=== PATIENT | female | born 1965 | race Caucasian/White ===

== ENCOUNTER 2020-06-26 17:48 | Inpatient (IN) ==
[2020-06-26 18:24] LABS: Basophils # 0.1 K/mcL (0.0-0.2); Basophils % 0.8 %; Eosinophils # 0.3 K/mcL (0.0-0.6); Eosinophils % 3.1 %; Hematocrit 40.4 % (35.3-44.9); Hemoglobin 13.2 g/dL (11.5-15.4); Immature Granulocytes % 0.5 % (0-4); Lymphocytes # 3.4 K/mcL (0.6-4.6); Lymphocytes % 33.1 %; Mean Corpuscular HGB Conc 32.7 g/dL (31.6-35.5); Mean Corpuscular Hemoglobin 28.9 pg (28.0-33.3); Mean Corpuscular Volume 88.6 fL (83.0-100.0); Mean Platelet Volume 9.9 fL (9.4-12.4); Monocytes # 0.5 K/mcL (0.0-1.3); Monocytes % 5.3 %; Neutrophils # 5.8 K/mcL (1.6-8.9); Platelet Count 355 K/mcL (140-400); Red Blood Count 4.56 M/mcL (3.82-4.97); Red Cell Distribution Width 13.2 % (11.5-14.5); Segmented Neutrophils % 57.2 %; White Blood Count 10.2 K/mcL (4.3-11.1)
[2020-06-26 18:51] LABS: Alanine Aminotransferase 22 Units/L (7-52); Albumin 3.6 g/dL (3.5-5.7); Albumin/Globulin Ratio 1.3 (1.1-2.2); Alkaline Phosphatase 58 Units/L (34-104); Aspartate Amino Transferase 25 Units/L (13-39); BUN/Creatinine Ratio 9 (6-26); Bilirubin,Indirect 0.3 mg/dL (0.0-1.0); Bilirubin,Total 0.3 mg/dL (0.3-1.0); Blood Urea Nitrogen 5 mg/dL (6-20); Calcium 9.4 mg/dL (8.6-10.3); Carbon Dioxide 26 mEq/L (23-29); Chloride 105 mEq/L (98-107); Globulin 2.8 g/dL (2.4-3.5); Glucose 103 mg/dL (70-105); Magnesium 0.9 mg/dL (1.6-2.6); Osmolality,Calculated 284 (280-300); Phosphorous 3.6 mg/dL (2.7-4.5); Potassium 3.7 mEq/L (3.5-5.1); Sodium 138 mEq/L (136-145); Total Protein 6.4 g/dL (6.4-8.9); Troponin I 0.29 ng/mL (< 0.04); eGFR For African Americans > 60 (> 60); eGFR For Non-African Americans > 60 (> 60)
[2020-06-26] MEDS ORDERED: Aspirin 325 MG TABLET PO ONE (18:52)
[2020-06-26] MEDS ORDERED: *HR* Heparin 5,000 UNIT/ML VIAL IVP ONE (19:00)
[2020-06-26] MEDS ORDERED: *HR* Heparin 5,000 UNIT/ML VIAL IVP PRN (19:00)
[2020-06-26 19:54] LABS: Hematocrit 39.2 % (35.3-44.9); Hemoglobin 12.9 g/dL (11.5-15.4); Heparin anti-factor XA UFH 0.96 IU/mL (0.30-0.70); INR 1.3; Mean Corpuscular HGB Conc 32.9 g/dL (31.6-35.5); Mean Corpuscular Hemoglobin 29.1 pg (28.0-33.3); Mean Corpuscular Volume 88.5 fL (83.0-100.0); Platelet Count 345 K/mcL (140-400); Prothrombin Time 14.3 Seconds (9.4-12.1); Red Blood Count 4.43 M/mcL (3.82-4.97); Red Cell Distribution Width 13.2 % (11.5-14.5); White Blood Count 10.7 K/mcL (4.3-11.1)
[2020-06-26] MEDS: Heparin 25,000UNIT/250ML 1/2NS 25,000 UNIT/250 ML IV.SOLN IVC SCH (20:01)
[2020-06-26 21:50] LABS: Adenovirus Not Detected (Not Detect); Bordetella Pertussis Not Detected (Not Detect); Chlamydophila pneumoniae Not Detected (Not Detect); Coronavirus 229E Not Detected (Not Detect); Coronavirus HKU1 Not Detected (Not Detect); Coronavirus NL63 Not Detected (Not Detect); Coronavirus OC43 Not Detected (Not Detect); Human Metapneumovirus Not Detected (Not Detect); Human Rhinovirus/Enterovirus Not Detected (Not Detect); Influenza A Subtype 2009 H1 Not Detected (Not Detect); Influenza B Not Detected (Not Detect); Mycoplasma pneumoniae Not Detected (Not Detect); Parainfluenza Virus 1 Not Detected (Not Detect); Parainfluenza Virus 2 Not Detected (Not Detect); Parainfluenza Virus 3 Not Detected (Not Detect); Parainfluenza Virus 4 Not Detected (Not Detect); Respiratory Syncytial Virus Not Detected (Not Detect); SARS-CoV-2 Not Detected (Not Detect)
[2020-06-26] MEDS ORDERED: Naloxone 0.4 MG/ML INJ IVP PRN (21:56)
[2020-06-27] MEDS ORDERED: Acetaminophen 325 MG TABLET PO PRN (00:08)
[2020-06-27] MEDS ORDERED: D5% in Water 1,000 ML IVC PRN (01:53)
[2020-06-27] MEDS ORDERED: Dextrose Gel 15 GM/37.5 ML TUBE PO PRN ×2 (01:53)
[2020-06-27] MEDS ORDERED: *HR* Dextrose 50 % in Water (Vial) 50 ML VIAL IVP PRN (01:53)
[2020-06-27] MEDS ORDERED: Perflutren Lipid Microsphere 1.3 ML in 0.9 % Sodium Chloride 8.7 ML IVP PRN ×2 (02:36→11:24)
[2020-06-27] MEDS: *HR* Promethazine 25 MG/ML VIAL IVP PRN (05:53)
[2020-06-27 05:59] LABS: Basophils # 0.1 K/mcL (0.0-0.2); Basophils % 0.7 %; Eosinophils # 0.4 K/mcL (0.0-0.6); Eosinophils % 3.6 %; Hematocrit 40.6 % (35.3-44.9); Hemoglobin 13.3 g/dL (11.5-15.4); Immature Granulocytes % 0.6 % (0-4); Lymphocytes # 3.7 K/mcL (0.6-4.6); Lymphocytes % 36.5 %; Mean Corpuscular HGB Conc 32.8 g/dL (31.6-35.5); Mean Corpuscular Hemoglobin 28.9 pg (28.0-33.3); Mean Corpuscular Volume 88.1 fL (83.0-100.0); Mean Platelet Volume 9.9 fL (9.4-12.4); Monocytes # 0.6 K/mcL (0.0-1.3); Monocytes % 5.9 %; Neutrophils # 5.4 K/mcL (1.6-8.9); Platelet Count 356 K/mcL (140-400); Red Blood Count 4.61 M/mcL (3.82-4.97); Red Cell Distribution Width 13.2 % (11.5-14.5); Segmented Neutrophils % 52.7 %; White Blood Count 10.3 K/mcL (4.3-11.1)
[2020-06-27 06:09] LABS: Heparin anti-factor XA UFH 0.14 IU/mL (0.30-0.70)
[2020-06-27 06:10] LABS: INR 1.1
[2020-06-27 06:11] LABS: Activated Partial Thrombo Time 40.3 Seconds (26.0-36.0)
[2020-06-27 06:17] LABS: BUN/Creatinine Ratio 11 (6-26); Blood Urea Nitrogen 6 mg/dL (6-20); Calcium 9.1 mg/dL (8.6-10.3); Carbon Dioxide 24 mEq/L (23-29); Chloride 108 mEq/L (98-107); Glucose 92 mg/dL (70-105); Magnesium 1.4 mg/dL (1.6-2.6); Osmolality,Calculated 291 (280-300); Phosphorous 4.3 mg/dL (2.7-4.5); Potassium 3.3 mEq/L (3.5-5.1); Sodium 142 mEq/L (136-145); eGFR For African Americans > 60 (> 60); eGFR For Non-African Americans > 60 (> 60)
[2020-06-27] MEDS ORDERED: Magnesium Sulfate 1 GM/102 ML PIGGYBACK IVPB ONE (06:53)
[2020-06-27] MEDS: *HR* Heparin 5,000 UNIT/ML VIAL IVP PRN (07:01)
[2020-06-27] MEDS: Insulin LISPRO 300 UNITS/3 ML VIAL SQ SCH ×4 (07:11→20:36)
[2020-06-27] MEDS: Insulin DETEMIR 100 UNIT/ML X5UNITS SQ SCH (08:30)
[2020-06-27 08:32] LABS: Estimated Average Glucose 214 mg/dl
[2020-06-27] MEDS ORDERED: NON-FORMULARY MEDICATION 1 EACH EACH (Insulin Aspart [Novolog Flexpen] 100 UNIT) SQ SCH (09:00)
[2020-06-27] MEDS ORDERED: 0.9 % Sodium Chloride 2,000 ML ONE (10:19)
[2020-06-27] MEDS ORDERED: Nitroglycerin 1,000 MCG/10 ML VIAL IV ONE (10:19)
[2020-06-27] MEDS ORDERED: ISOVUE-370 200 ML INFUS..BTL ONE (10:19)
[2020-06-27] MEDS ORDERED: Heparin 1,000 UNITS/500 mL 500 ML ONE (10:19)
[2020-06-27] MEDS ORDERED: *HR* Heparin 10,000 UNIT/10 ML VIAL ONE (10:19)
[2020-06-27] MEDS: Metoprolol XL (24 HR) Succ 25 MG TAB.ER.24H PO SCH (10:21)
[2020-06-27] MEDS: Aspirin Enteric Coated 81 MG Tablet PO SCH (10:21)
[2020-06-27] MEDS: hydrOXYzine pamoate 25 MG CAPSULE PO SCH ×3 (10:31→20:24)
[2020-06-27] MEDS: PARoxetine 20 MG TABLET PO SCH (10:31)
[2020-06-27] MEDS ORDERED: *HR* Midazolam HCl 2 MG/2 ML VIAL ONE (10:32)
[2020-06-27] MEDS ORDERED: *HR* FentaNYL (PF) 100 MCG/2 ML VIAL ONE (10:32)
[2020-06-27] MEDS: lisinopriL 5 MG TABLET PO SCH (12:58)
[2020-06-27] MEDS ORDERED: *HR* Warfarin 5 MG TABLET PO ONE (18:00)
[2020-06-27] MEDS ORDERED: Warfarin perPT PO PRN (18:00)
[2020-06-28] MEDS: Heparin 25,000UNIT/250ML 1/2NS 25,000 UNIT/250 ML IV.SOLN IVC SCH ×2 (00:43→16:00)
[2020-06-28 01:32] LABS: Basophils # 0.1 K/mcL (0.0-0.2); Basophils % 0.5 %; Eosinophils # 0.3 K/mcL (0.0-0.6); Eosinophils % 2.7 %; Hemoglobin 12.6 g/dL (11.5-15.4); Immature Granulocytes % 0.5 % (0-4); Lymphocytes # 3.4 K/mcL (0.6-4.6); Lymphocytes % 36.6 %; Mean Corpuscular HGB Conc 33.2 g/dL (31.6-35.5); Mean Corpuscular Volume 87.4 fL (83.0-100.0); Mean Platelet Volume 10.6 fL (9.4-12.4); Monocytes # 0.5 K/mcL (0.0-1.3); Monocytes % 5.5 %; Platelet Count 324 K/mcL (140-400); Red Blood Count 4.35 M/mcL (3.82-4.97); Red Cell Distribution Width 13.2 % (11.5-14.5); Segmented Neutrophils % 54.2 %; White Blood Count 9.2 K/mcL (4.3-11.1)
[2020-06-28 01:36] LABS: INR 1.2; Prothrombin Time 13.5 Seconds (9.4-12.1)
[2020-06-28 01:52] LABS: BUN/Creatinine Ratio 13 (6-26); Blood Urea Nitrogen 7 mg/dL (6-20); Calcium 8.5 mg/dL (8.6-10.3); Carbon Dioxide 21 mEq/L (23-29); Chloride 108 mEq/L (98-107); Glucose 191 mg/dL (70-105); Magnesium 1.4 mg/dL (1.6-2.6); Osmolality,Calculated 289 (280-300); Potassium 3.7 mEq/L (3.5-5.1); Sodium 138 mEq/L (136-145); eGFR For African Americans > 60 (> 60); eGFR For Non-African Americans > 60 (> 60)
[2020-06-28] MEDS: hydrOXYzine pamoate 25 MG CAPSULE PO SCH ×3 (07:14→20:00)
[2020-06-28] MEDS: PARoxetine 20 MG TABLET PO SCH (07:14)
[2020-06-28] MEDS: Aspirin Enteric Coated 81 MG Tablet PO SCH (07:14)
[2020-06-28] MEDS: Metoprolol XL (24 HR) Succ 25 MG TAB.ER.24H PO SCH (07:15)
[2020-06-28] MEDS: lisinopriL 5 MG TABLET PO SCH (07:16)
[2020-06-28] MEDS: Insulin LISPRO 300 UNITS/3 ML VIAL SQ SCH ×4 (07:22→19:52)
[2020-06-28] MEDS ORDERED: Magnesium Oxide 400 MG TABLET PO ONE (08:20)
[2020-06-28] MEDS: Insulin DETEMIR 100 UNIT/ML X5UNITS SQ SCH ×2 (09:32→09:43)
[2020-06-28 09:47] LABS: Chol/HDL Ratio 3.2 (0-4.9)
[2020-06-28] MEDS ORDERED: *HR* Warfarin 5 MG TABLET PO ONE (18:00)
[2020-06-29] MEDS: *HR* Promethazine 25 MG/ML VIAL IVP PRN (03:10)
[2020-06-29] MEDS: Metoprolol XL (24 HR) Succ 25 MG TAB.ER.24H PO SCH (09:25)
[2020-06-29] MEDS: lisinopriL 5 MG TABLET PO SCH (09:26)
[2020-06-29] MEDS: Insulin LISPRO 300 UNITS/3 ML VIAL SQ SCH ×4 (09:34→20:42)
[2020-06-29] MEDS: hydrOXYzine pamoate 25 MG CAPSULE PO SCH ×3 (09:34→20:41)
[2020-06-29] MEDS: Insulin DETEMIR 100 UNIT/ML X5UNITS SQ SCH (09:34)
[2020-06-29] MEDS: PARoxetine 20 MG TABLET PO SCH (09:34)
[2020-06-29] MEDS: Aspirin Enteric Coated 81 MG Tablet PO SCH (09:34)
[2020-06-29] MEDS: Heparin 25,000UNIT/250ML 1/2NS 25,000 UNIT/250 ML IV.SOLN IVC SCH (09:35)
[2020-06-29 10:32] LABS: Hemoglobin 12.3 g/dL (11.5-15.4); Mean Corpuscular HGB Conc 31.5 g/dL (31.6-35.5); Mean Corpuscular Hemoglobin 27.6 pg (28.0-33.3); Mean Corpuscular Volume 87.6 fL (83.0-100.0); Mean Platelet Volume 10.2 fL (9.4-12.4); Platelet Count 321 K/mcL (140-400); Red Blood Count 4.45 M/mcL (3.82-4.97); Red Cell Distribution Width 13.5 % (11.5-14.5); White Blood Count 7.3 K/mcL (4.3-11.1)
[2020-06-29 10:35] LABS: INR 1.5; Prothrombin Time 17.4 Seconds (9.4-12.1)
[2020-06-29 10:52] LABS: BUN/Creatinine Ratio 18 (6-26); Blood Urea Nitrogen 10 mg/dL (6-20); Calcium 8.9 mg/dL (8.6-10.3); Carbon Dioxide 24 mEq/L (23-29); Chloride 107 mEq/L (98-107); Glucose 271 mg/dL (70-105); Osmolality,Calculated 297 (280-300); Potassium 3.6 mEq/L (3.5-5.1); Sodium 139 mEq/L (136-145); eGFR For African Americans > 60 (> 60); eGFR For Non-African Americans > 60 (> 60)
[2020-06-29] MEDS ORDERED: *HR* Warfarin 5 MG TABLET PO ONE (18:00)
[2020-06-30] MEDS: Heparin 25,000UNIT/250ML 1/2NS 25,000 UNIT/250 ML IV.SOLN IVC SCH ×2 (01:15→21:22)
[2020-06-30 03:08] LABS: Hematocrit 36.7 % (35.3-44.9); Hemoglobin 11.6 g/dL (11.5-15.4); Mean Corpuscular HGB Conc 31.6 g/dL (31.6-35.5); Mean Corpuscular Hemoglobin 27.9 pg (28.0-33.3); Mean Corpuscular Volume 88.2 fL (83.0-100.0); Mean Platelet Volume 10.2 fL (9.4-12.4); Platelet Count 299 K/mcL (140-400); Red Blood Count 4.16 M/mcL (3.82-4.97); Red Cell Distribution Width 13.4 % (11.5-14.5); White Blood Count 7.5 K/mcL (4.3-11.1)
[2020-06-30 03:10] LABS: INR 1.7; Prothrombin Time 19.6 Seconds (9.4-12.1)
[2020-06-30 03:20] LABS: BUN/Creatinine Ratio 19 (6-26); Blood Urea Nitrogen 11 mg/dL (6-20); Calcium 8.5 mg/dL (8.6-10.3); Carbon Dioxide 26 mEq/L (23-29); Chloride 107 mEq/L (98-107); Glucose 282 mg/dL (70-105); Osmolality,Calculated 298 (280-300); Potassium 4.2 mEq/L (3.5-5.1); Sodium 139 mEq/L (136-145); eGFR For African Americans > 60 (> 60); eGFR For Non-African Americans > 60 (> 60)
[2020-06-30] MEDS: hydrOXYzine pamoate 25 MG CAPSULE PO SCH ×3 (09:44→20:33)
[2020-06-30] MEDS: lisinopriL 5 MG TABLET PO SCH (09:45)
[2020-06-30] MEDS: PARoxetine 20 MG TABLET PO SCH (09:45)
[2020-06-30] MEDS: Insulin DETEMIR 100 UNIT/ML X5UNITS SQ SCH (09:45)
[2020-06-30] MEDS: Insulin LISPRO 300 UNITS/3 ML VIAL SQ SCH ×4 (09:45→20:33)
[2020-06-30] MEDS: Metoprolol XL (24 HR) Succ 25 MG TAB.ER.24H PO SCH (09:45)
[2020-06-30] MEDS: Aspirin Enteric Coated 81 MG Tablet PO SCH (09:45)
[2020-06-30] MEDS ORDERED: Insulin DETEMIR 100 UNIT/ML X5UNITS SQ ONE (15:49)
[2020-06-30] MEDS ORDERED: *HR* Warfarin 5 MG TABLET PO ONE (18:00)
[2020-07-01 00:47] LABS: Hemoglobin 12.1 g/dL (11.5-15.4); Mean Corpuscular Hemoglobin 27.9 pg (28.0-33.3); Mean Corpuscular Volume 90.1 fL (83.0-100.0); Mean Platelet Volume 10.3 fL (9.4-12.4); Platelet Count 329 K/mcL (140-400); Red Blood Count 4.33 M/mcL (3.82-4.97); Red Cell Distribution Width 13.8 % (11.5-14.5); White Blood Count 8.6 K/mcL (4.3-11.1)
[2020-07-01 00:50] LABS: INR 2.2; Prothrombin Time 25.3 Seconds (9.4-12.1)
[2020-07-01 01:05] LABS: BUN/Creatinine Ratio 19 (6-26); Blood Urea Nitrogen 13 mg/dL (6-20); Carbon Dioxide 27 mEq/L (23-29); Chloride 107 mEq/L (98-107); Glucose 251 mg/dL (70-105); Osmolality,Calculated 299 (280-300); Potassium 4.1 mEq/L (3.5-5.1); Sodium 140 mEq/L (136-145); eGFR For African Americans > 60 (> 60); eGFR For Non-African Americans > 60 (> 60)
[2020-07-01] MEDS: *HR* Heparin 5,000 UNIT/ML VIAL IVP PRN (01:33)
[2020-07-01] MEDS: *HR* Promethazine 25 MG/ML VIAL IVP PRN (03:56)
[2020-07-01 06:35] VITALS: BP 107/72
[2020-07-01] MEDS: hydrOXYzine pamoate 25 MG CAPSULE PO SCH (07:44)
[2020-07-01] MEDS: PARoxetine 20 MG TABLET PO SCH (07:45)
[2020-07-01] MEDS: Insulin LISPRO 300 UNITS/3 ML VIAL SQ SCH (07:45)
[2020-07-01] MEDS: Aspirin Enteric Coated 81 MG Tablet PO SCH (07:45)
[2020-07-01] MEDS: Insulin DETEMIR 100 UNIT/ML X5UNITS SQ SCH (07:46)
[2020-07-01] MEDS: Metoprolol XL (24 HR) Succ 25 MG TAB.ER.24H PO SCH (07:51)
[2020-07-01] MEDS: lisinopriL 5 MG TABLET PO SCH (07:51)
[2020-07-01] MEDS ORDERED: *HR* Warfarin 5 MG TABLET PO ONE (18:00)
== END 2020-07-01 10:59 | disposition home or self-care (01) | DRG 281 ==
LOC: CDU 17:48 → EMEROOARM 17:48 → SUATTDRO 22:19 → CDU 22:22 → 3BNU 06-27 19:27
PROVIDERS: ADMIT Student in an Organized Health Care Education/Training Program; ATTEND Student in an Organized Health Care Education/Training Program

== ENCOUNTER 2021-11-27 15:32 | Inpatient (IN) ==
[2021-11-27 16:18] LABS: Basophils % 0.3 %; Immature Granulocytes % 1.1 % (0-4); Mean Corpuscular HGB Conc 34.9 g/dL (31.6-35.5)
[2021-11-27 16:18] LABS: VBG HCO3 11 mEq/L (21-27); VBG PCO2 18 mmHg (41-51); VBG PH 7.39 pH Units (7.32-7.42); VBG PO2 132 mmHg (25-50)
[2021-11-27 16:20] LABS: Basophils # 0.1 K/mcL (0.0-0.2); Hematocrit 54.1 % (35.3-44.9); Hemoglobin 18.9 g/dL (11.5-15.4); Lymphocytes # 1.6 K/mcL (0.6-4.6); Lymphocytes % 5.6 %; Mean Corpuscular Hemoglobin 30.8 pg (28.0-33.3); Mean Corpuscular Volume 88.3 fL (83.0-100.0); Mean Platelet Volume 10.6 fL (9.4-12.4); Monocytes # 2.1 K/mcL (0.0-1.3); Monocytes % 7.6 %; Neutrophils # 23.7 K/mcL (1.6-8.9); Platelet Count 361 K/mcL (140-400); Red Blood Count 6.13 M/mcL (3.82-4.97); Red Cell Distribution Width 12.4 % (11.5-14.5); Segmented Neutrophils % 85.4 %; White Blood Count 27.7 K/mcL (4.3-11.1)
[2021-11-27 16:38] LABS: BUN/Creatinine Ratio 19 (6-26); Blood Urea Nitrogen 19 mg/dL (6-20); Calcium 9.3 mg/dL (8.6-10.3); Carbon Dioxide 10 mEq/L (23-29); Chloride 89 mEq/L (98-107); Glucose 725 mg/dL (70-105); Osmolality,Calculated 295 (280-300); Potassium 3.1 mEq/L (3.5-5.1); Sodium 124 mEq/L (136-145); eGFR For African Americans > 60 (> 60); eGFR For Non-African Americans 59 (> 60)
[2021-11-27 16:59] LABS: Troponin I 0.06 ng/mL (< 0.04)
[2021-11-27] MEDS ORDERED: Ondansetron 4 MG/2 ML VIAL IVP ONE ×2 (17:08→18:36)
[2021-11-27] MEDS ORDERED: *HR* FentaNYL (PF) 100 MCG/2 ML VIAL IVP ONE ×2 (17:09→18:36)
[2021-11-27] MEDS: 0.9 % Sodium Chloride 1,000 ML IVC SCH ×7 (17:17→23:03)
[2021-11-27 17:46] LABS: INR 1.1; Prothrombin Time 12.4 Seconds (9.4-12.1)
[2021-11-27 18:03] LABS: Bilirubin,Urine Negative (Negative); Blood,Urine Trace (Negative); Clarity,Urine Clear (Clear); Color,Urine Colorless (Yellow); Glucose,Urine (UA) >=1000 mg/dL (Normal); Ketones,Urine 100 mg/dL (Negative); Leukocyte Esterase,Urine Negative (Negative); Mucus,Urine Few per lpf (None-Few); Nitrite,Urine Negative (Negative); PH,Urine 5.5 pH Units (5.0-8.0); Protein,Urine 50 mg/dL (Neg-Trace); RBC,Urine 0-3 per hpf (0-3); Specific Gravity,Urine > 1.030 (1.010-1.025); Squamous Epithelial Cell,Urine Few per hpf (None-Few); Urobilinogen,Urine Normal (Normal); WBC,Urine 0-3 per hpf (0-3)
[2021-11-27] MEDS ORDERED: Aspirin 325 MG TABLET PO ONE (18:04)
[2021-11-27] MEDS ORDERED: *HR* Dextrose 50 % in Water (Syg) 50 ML SYRINGE IVP PRN ×2 (18:05→18:44)
[2021-11-27] MEDS ORDERED: Potassium Chloride Elixir 20 MEQ/15 ML UDC PO ONE (18:15)
[2021-11-27] MEDS ORDERED: Insulin Regular, Human 100 UNIT/ML IV PRN (18:44)
[2021-11-27] MEDS ORDERED: D5% in 0.45% NACL 1,000 ML IVC PRN (18:44)
[2021-11-27] MEDS ORDERED: D5% in 0.45% NACL w KCl 20 MEQ/1,000 ML MLS IVC PRN (18:44)
[2021-11-27 18:48] LABS: Adenovirus Not Detected (Not Detect); Bordetella Pertussis Not Detected (Not Detect); Chlamydophila pneumoniae Not Detected (Not Detect); Coronavirus 229E Not Detected (Not Detect); Coronavirus HKU1 Not Detected (Not Detect); Coronavirus NL63 Not Detected (Not Detect); Coronavirus OC43 Not Detected (Not Detect); Human Metapneumovirus Not Detected (Not Detect); Human Rhinovirus/Enterovirus Not Detected (Not Detect); Influenza A Subtype 2009 H1 Not Detected (Not Detect); Influenza B Not Detected (Not Detect); Mycoplasma pneumoniae Not Detected (Not Detect); Parainfluenza Virus 1 Not Detected (Not Detect); Parainfluenza Virus 2 Not Detected (Not Detect); Parainfluenza Virus 3 Not Detected (Not Detect); Parainfluenza Virus 4 Not Detected (Not Detect); Respiratory Syncytial Virus Not Detected (Not Detect); SARS-CoV-2 Not Detected (Not Detect)
[2021-11-27] MEDS ORDERED: Naloxone 0.4 MG/ML INJ IVP PRN (18:48)
[2021-11-27] MEDS ORDERED: Melatonin 3 MG TABLET PO PRN (18:48)
[2021-11-27 20:40] LABS: BUN/Creatinine Ratio 22 (6-26); Blood Urea Nitrogen 19 mg/dL (6-20); Calcium 8.8 mg/dL (8.6-10.3); Carbon Dioxide 8 mEq/L (23-29); Chloride 93 mEq/L (98-107); Glucose 563 mg/dL (70-105); Osmolality,Calculated 290 (280-300); Potassium 4.1 mEq/L (3.5-5.1); Sodium 126 mEq/L (136-145); eGFR For African Americans > 60 (> 60); eGFR For Non-African Americans > 60 (> 60)
[2021-11-27] MEDS: 0.9 % Sodium Chloride w KCl 20 MEQ/1,000 ML MLS IVC SCH ×3 (21:08→23:32)
[2021-11-27] MEDS: Ondansetron ODT 4 MG TAB.RAPDIS SL PRN (21:10)
[2021-11-27] MEDS: 0.45 % Sodium Chloride w/KCl 20 MEQ/1,000 ML MLS IVC SCH ×2 (22:08→23:03)
[2021-11-27 22:57] LABS: BUN/Creatinine Ratio 21 (6-26); Blood Urea Nitrogen 16 mg/dL (6-20); Calcium 8.9 mg/dL (8.6-10.3); Carbon Dioxide 15 mEq/L (23-29); Chloride 100 mEq/L (98-107); Glucose 382 mg/dL (70-105); Osmolality,Calculated 289 (280-300); Potassium 3.4 mEq/L (3.5-5.1); Sodium 131 mEq/L (136-145); eGFR For African Americans > 60 (> 60); eGFR For Non-African Americans > 60 (> 60)
[2021-11-27] MEDS ORDERED: *HR* HYDROmorphone (PF) 1 MG/ML SYRINGE IVP PRN (23:02)
[2021-11-27] MEDS: Metoclopramide 10 MG/2 ML VIAL IVP PRN (23:32)
[2021-11-28] MEDS: 0.9 % Sodium Chloride 1,000 ML IVC SCH (00:18)
[2021-11-28 00:19] LABS: Amphetamine Screen,Urine Negative ng/mL (Cutoff=1000); Barbiturate Screen,Urine Negative ng/mL (Cutoff=200); Benzodiazepines Screen,Urine Negative ng/mL (Cutoff=200); Cannabinoid Screen,Urine Positive ng/mL (Cutoff = 50); Cocaine Screen,Urine Negative ng/mL (Cutoff= 300); Opiate Screen,Urine Negative ng/mL (Cutoff=300); Phencyclidine Screen,Urine Negative ng/mL (Cutoff=25)
[2021-11-28 01:54] LABS: VBG HCO3 18 mEq/L (21-27); VBG PCO2 37 mmHg (41-51); VBG PO2 67 mmHg (25-50)
[2021-11-28 01:59] LABS: Hematocrit 51.6 % (35.3-44.9); Mean Corpuscular HGB Conc 34.9 g/dL (31.6-35.5); Mean Corpuscular Hemoglobin 30.6 pg (28.0-33.3); Mean Corpuscular Volume 87.6 fL (83.0-100.0); Mean Platelet Volume 10.2 fL (9.4-12.4); Platelet Count 279 K/mcL (140-400); Red Blood Count 5.89 M/mcL (3.82-4.97); Red Cell Distribution Width 12.3 % (11.5-14.5); White Blood Count 28.7 K/mcL (4.3-11.1)
[2021-11-28 02:01] LABS: INR 1.1; Prothrombin Time 12.4 Seconds (9.4-12.1)
[2021-11-28 02:10] LABS: Albumin 3.9 g/dL (3.5-5.7); Albumin/Globulin Ratio 1.5 (1.1-2.2); Beta-Hydroxybutyric Acid 1.29 mmol/L (0.02-0.27); Bilirubin,Direct 0.1 mg/dL (0.0-0.2); Bilirubin,Indirect 0.4 mg/dL (0.0-1.0); Bilirubin,Total 0.5 mg/dL (0.3-1.0); Globulin 2.6 g/dL (2.4-3.5); Total Protein 6.5 g/dL (6.4-8.9)
[2021-11-28 02:11] LABS: Amylase 29 Units/L (29-103); BUN/Creatinine Ratio 20 (6-26); Blood Urea Nitrogen 15 mg/dL (6-20); Calcium 8.5 mg/dL (8.6-10.3); Carbon Dioxide 18 mEq/L (23-29); Chloride 104 mEq/L (98-107); Glucose 186 mg/dL (70-105); Lipase 5 Units/L (11-82); Osmolality,Calculated 280 (280-300); Potassium 3.7 mEq/L (3.5-5.1); Sodium 132 mEq/L (136-145); eGFR For African Americans > 60 (> 60); eGFR For Non-African Americans > 60 (> 60)
[2021-11-28 02:18] LABS: Procalcitonin 0.22 ng/mL (0.00-0.15)
[2021-11-28 03:03] LABS: Lymphocytes # 2.3 K/mcL (0.6-4.6); Monocytes # 1.7 K/mcL (0.0-1.3); Neutrophils # 24.7 K/mcL (1.6-8.9); Platelet Estimate Normal (Normal)
[2021-11-28] MEDS ORDERED: Potassium Phosphate 44 MEQ in 0.9 % Sodium Chloride 250 ML IVPB ONE (03:24)
[2021-11-28 03:48] LABS: Estimated Average Glucose 306 mg/dl; Hemoglobin A1C 12.3 %
[2021-11-28] MEDS ORDERED: 0.9 % Sodium Chloride w KCl 20 MEQ/1,000 ML MLS IVC PRN (05:06)
[2021-11-28] MEDS ORDERED: 0.9 % Sodium Chloride 1,000 ML IVC PRN ×2 (05:06)
[2021-11-28] MEDS ORDERED: 0.45 % Sodium Chloride w/KCl 20 MEQ/1,000 ML MLS IVC PRN (05:06)
[2021-11-28] MEDS ORDERED: Insulin DETEMIR 100 UNIT/ML X5UNITS SUBQ SCH (06:09)
[2021-11-28] MEDS: Ondansetron ODT 4 MG TAB.RAPDIS SL PRN ×2 (06:40→16:46)
[2021-11-28] MEDS: PARoxetine 20 MG TABLET PO SCH (09:20)
[2021-11-28] MEDS: Cyanocobalamin (B-12) 1,000 MCG TABLET PO SCH (09:20)
[2021-11-28] MEDS: ARIPiprazole 5 MG TABLET PO SCH (09:22)
[2021-11-28] MEDS: Cholecalciferol (D-3) 1,000 UNIT (25MCG) TABLET PO SCH (09:22)
[2021-11-28] MEDS: lisinopriL 5 MG TABLET PO SCH (09:23)
[2021-11-28] MEDS: carvediloL 6.25 MG TABLET PO SCH ×3 (09:23→17:13)
[2021-11-28] MEDS: Piperacillin/Tazobactam 3.375 GM in 0.9 % Sodium Chloride Mini Bag 100 ML IVPB SCH ×2 (09:59→16:46)
[2021-11-28] MEDS: Thiamine (B-1) 100 MG TABLET PO SCH (10:01)
[2021-11-28] MEDS: Aspirin Enteric Coated 81 MG Tablet PO SCH (10:01)
[2021-11-28] MEDS: Insulin LISPRO 300 UNITS/3 ML VIAL SUBQ SCH ×4 (13:06→20:45)
[2021-11-28 15:14] LABS: VBG HCO3 18 mEq/L (21-27); VBG PCO2 32 mmHg (41-51); VBG PH 7.36 pH Units (7.32-7.42); VBG PO2 52 mmHg (25-50)
[2021-11-28 15:38] LABS: BUN/Creatinine Ratio 15 (6-26); Blood Urea Nitrogen 9 mg/dL (6-20); Calcium 8.2 mg/dL (8.6-10.3); Carbon Dioxide 18 mEq/L (23-29); Chloride 104 mEq/L (98-107); Glucose 244 mg/dL (70-105); Magnesium 1.9 mg/dL (1.6-2.6); Osmolality,Calculated 275 (280-300); Phosphorous 1.3 mg/dL (2.7-4.5); Potassium 4.5 mEq/L (3.5-5.1); Sodium 129 mEq/L (136-145); eGFR For African Americans > 60 (> 60); eGFR For Non-African Americans > 60 (> 60)
[2021-11-28] MEDS: Insulin DETEMIR 100 UNIT/ML X5UNITS SUBQ SCH (20:44)
[2021-11-28] MEDS: *HR* OxyCODONE/APAP 5/325 TABLET PO PRN (20:44)
[2021-11-28] MEDS: Lactobacillus 1 EACH CAP.SPRINK PO SCH (20:44)
[2021-11-29] MEDS: Piperacillin/Tazobactam 3.375 GM in 0.9 % Sodium Chloride Mini Bag 100 ML IVPB SCH ×4 (00:10→23:35)
[2021-11-29] MEDS: *HR* OxyCODONE/APAP 5/325 TABLET PO PRN ×4 (03:17→23:34)
[2021-11-29] MEDS: Metoclopramide 10 MG/2 ML VIAL IVP PRN ×2 (03:17→10:54)
[2021-11-29] MEDS ORDERED: Morphine Sulfate 2 MG/ML SYRINGE IVP ONE (03:49)
[2021-11-29 04:38] LABS: Basophils % 0.2 %; Eosinophils # 0.1 K/mcL (0.0-0.6); Eosinophils % 0.3 %; Hematocrit 46.4 % (35.3-44.9); Immature Granulocytes % 0.5 % (0-4); Lymphocytes # 2.3 K/mcL (0.6-4.6); Lymphocytes % 12.5 %; Mean Corpuscular HGB Conc 33.6 g/dL (31.6-35.5); Mean Corpuscular Hemoglobin 29.9 pg (28.0-33.3); Mean Corpuscular Volume 89.1 fL (83.0-100.0); Mean Platelet Volume 10.1 fL (9.4-12.4); Monocytes # 1.2 K/mcL (0.0-1.3); Monocytes % 6.3 %; Neutrophils # 14.9 K/mcL (1.6-8.9); Platelet Count 200 K/mcL (140-400); Red Blood Count 5.21 M/mcL (3.82-4.97); Red Cell Distribution Width 12.7 % (11.5-14.5); Segmented Neutrophils % 80.2 %; White Blood Count 18.6 K/mcL (4.3-11.1)
[2021-11-29 04:52] LABS: Hemoglobin 15.6 g/dL (11.5-15.4)
[2021-11-29 05:00] LABS: BUN/Creatinine Ratio 13 (6-26); Blood Urea Nitrogen 8 mg/dL (6-20); Calcium 8.3 mg/dL (8.6-10.3); Carbon Dioxide 24 mEq/L (23-29); Chloride 102 mEq/L (98-107); Glucose 185 mg/dL (70-105); Magnesium 1.8 mg/dL (1.6-2.6); Osmolality,Calculated 277 (280-300); Potassium 4.5 mEq/L (3.5-5.1); Sodium 132 mEq/L (136-145); eGFR For African Americans > 60 (> 60); eGFR For Non-African Americans > 60 (> 60)
[2021-11-29] MEDS: *HR* Enoxaparin 40 MG/0.4 ML SYRINGE SQ SCH (06:11)
[2021-11-29] MEDS: carvediloL 6.25 MG TABLET PO SCH ×2 (07:04→16:18)
[2021-11-29] MEDS: lisinopriL 5 MG TABLET PO SCH (07:05)
[2021-11-29] MEDS: Thiamine (B-1) 100 MG TABLET PO SCH (07:42)
[2021-11-29] MEDS: Lactobacillus 1 EACH CAP.SPRINK PO SCH ×2 (07:42→21:17)
[2021-11-29] MEDS: ARIPiprazole 5 MG TABLET PO SCH (07:43)
[2021-11-29] MEDS: PARoxetine 20 MG TABLET PO SCH (07:43)
[2021-11-29] MEDS: Cholecalciferol (D-3) 1,000 UNIT (25MCG) TABLET PO SCH (07:43)
[2021-11-29] MEDS: Cyanocobalamin (B-12) 1,000 MCG TABLET PO SCH (07:43)
[2021-11-29] MEDS: Aspirin Enteric Coated 81 MG Tablet PO SCH (07:43)
[2021-11-29] MEDS: Spironolactone 12.5 MG TABLET PO SCH (07:45)
[2021-11-29] MEDS: Insulin DETEMIR 100 UNIT/ML X5UNITS SUBQ SCH ×2 (07:56→21:17)
[2021-11-29] MEDS: Insulin LISPRO 300 UNITS/3 ML VIAL SUBQ SCH ×7 (07:57→21:18)
[2021-11-29] MEDS ORDERED: Spironolactone 25 MG TABLET PO SCH (09:00)
[2021-11-29] MEDS ORDERED: Perflutren Lipid Microsphere 1.3 ML in 0.9 % Sodium Chloride 8.7 ML IVP PRN (09:09)
[2021-11-29] MEDS ORDERED: Isovue-370 500 ML BOTTLE IVP ONE ×2 (16:00→16:01)
[2021-11-29] MEDS: *HR* Promethazine 25 MG/ML VIAL IM PRN (16:18)
[2021-11-30 05:30] LABS: Basophils % 0.4 %; Eosinophils # 0.1 K/mcL (0.0-0.6); Eosinophils % 1.3 %; Hematocrit 43.9 % (35.3-44.9); Immature Granulocytes % 0.4 % (0-4); Lymphocytes % 27.7 %; Mean Corpuscular HGB Conc 34.2 g/dL (31.6-35.5); Mean Corpuscular Hemoglobin 30.1 pg (28.0-33.3); Mean Corpuscular Volume 88.2 fL (83.0-100.0); Mean Platelet Volume 10.4 fL (9.4-12.4); Monocytes # 0.6 K/mcL (0.0-1.3); Monocytes % 5.5 %; Neutrophils # 7.1 K/mcL (1.6-8.9); Platelet Count 208 K/mcL (140-400); Red Blood Count 4.98 M/mcL (3.82-4.97); Red Cell Distribution Width 12.7 % (11.5-14.5); Segmented Neutrophils % 64.7 %
[2021-11-30] MEDS: Metoclopramide 10 MG/2 ML VIAL IVP PRN ×2 (05:37→20:00)
[2021-11-30] MEDS: *HR* Enoxaparin 40 MG/0.4 ML SYRINGE SQ SCH (05:40)
[2021-11-30 05:43] LABS: Magnesium 1.9 mg/dL (1.6-2.6); Phosphorous 3.2 mg/dL (2.7-4.5)
[2021-11-30 05:44] LABS: BUN/Creatinine Ratio 13 (6-26); Blood Urea Nitrogen 8 mg/dL (6-20); Calcium 8.2 mg/dL (8.6-10.3); Carbon Dioxide 25 mEq/L (23-29); Chloride 101 mEq/L (98-107); Glucose 123 mg/dL (70-105); Osmolality,Calculated 276 (280-300); Potassium 3.5 mEq/L (3.5-5.1); Sodium 133 mEq/L (136-145); eGFR For African Americans > 60 (> 60); eGFR For Non-African Americans > 60 (> 60)
[2021-11-30] MEDS: Insulin LISPRO 300 UNITS/3 ML VIAL SUBQ SCH ×7 (08:13→19:50)
[2021-11-30] MEDS: Multivit/Ca/Min/Fe/FA 1 TAB TABLET PO SCH (08:14)
[2021-11-30] MEDS: Lactobacillus 1 EACH CAP.SPRINK PO SCH ×2 (08:14→19:48)
[2021-11-30] MEDS: ARIPiprazole 5 MG TABLET PO SCH (08:14)
[2021-11-30] MEDS: Spironolactone 12.5 MG TABLET PO SCH (08:14)
[2021-11-30] MEDS: Cyanocobalamin (B-12) 1,000 MCG TABLET PO SCH (08:14)
[2021-11-30] MEDS: carvediloL 6.25 MG TABLET PO SCH ×2 (08:15→16:38)
[2021-11-30] MEDS: lisinopriL 5 MG TABLET PO SCH (08:15)
[2021-11-30] MEDS: Cholecalciferol (D-3) 1,000 UNIT (25MCG) TABLET PO SCH (08:15)
[2021-11-30] MEDS: Thiamine (B-1) 100 MG TABLET PO SCH (08:15)
[2021-11-30] MEDS: Aspirin Enteric Coated 81 MG Tablet PO SCH (08:16)
[2021-11-30] MEDS: Piperacillin/Tazobactam 3.375 GM in 0.9 % Sodium Chloride Mini Bag 100 ML IVPB SCH (08:16)
[2021-11-30] MEDS: Pantoprazole 40 MG VIAL IVP SCH ×2 (08:27→16:51)
[2021-11-30] MEDS: PARoxetine 20 MG TABLET PO SCH (08:28)
[2021-11-30] MEDS: Insulin DETEMIR 100 UNIT/ML X5UNITS SUBQ SCH ×2 (08:28→19:51)
[2021-11-30] MEDS: Stomatitis Mixture 5 ML UDC PO SCH ×4 (10:10→19:51)
[2021-11-30] MEDS ORDERED: Famotidine 20 MG/2 ML VIAL IVP ONE (13:53)
[2021-11-30] MEDS ORDERED: Famotidine 20 MG/2 ML VIAL ONE (13:55)
[2021-11-30] MEDS ORDERED: Lidocaine HCL 4 ML Topical Solution (Laryng-O-Jet Kit Sterile Pak) TP ONE (14:10)
[2021-11-30] MEDS ORDERED: *HR* FentaNYL (PF) 100 MCG/2 ML VIAL ONE (14:10)
[2021-11-30] MEDS ORDERED: Ondansetron 4 MG/2 ML VIAL ONE (14:10)
[2021-11-30] MEDS ORDERED: Lidocaine -MPF 2% 5 ML VIAL ONE (14:10)
[2021-11-30] MEDS ORDERED: *HR* Succinylcholine 200 MG/10 ML VIAL IVP ONE (14:10)
[2021-11-30] MEDS ORDERED: *HR* Etomidate 40 MG/20 ML VIAL IVP ONE (14:18)
[2021-11-30] MEDS: Acetaminophen 325 MG TABLET PO PRN (19:59)
[2021-12-01] MEDS: Acetaminophen 325 MG TABLET PO PRN (05:28)
[2021-12-01] MEDS: *HR* Enoxaparin 40 MG/0.4 ML SYRINGE SQ SCH (05:29)
[2021-12-01] MEDS: Pantoprazole 40 MG VIAL IVP SCH ×2 (05:29→16:36)
[2021-12-01] MEDS: Stomatitis Mixture 5 ML UDC PO SCH ×3 (07:29→16:36)
[2021-12-01] MEDS: Insulin DETEMIR 100 UNIT/ML X5UNITS SUBQ SCH ×2 (07:29→21:44)
[2021-12-01] MEDS: Insulin LISPRO 300 UNITS/3 ML VIAL SUBQ SCH ×7 (07:29→21:44)
[2021-12-01] MEDS: lisinopriL 5 MG TABLET PO SCH (07:31)
[2021-12-01] MEDS: Cholecalciferol (D-3) 1,000 UNIT (25MCG) TABLET PO SCH (07:31)
[2021-12-01] MEDS: Aspirin Enteric Coated 81 MG Tablet PO SCH (07:31)
[2021-12-01] MEDS: Spironolactone 12.5 MG TABLET PO SCH (07:31)
[2021-12-01] MEDS: Thiamine (B-1) 100 MG TABLET PO SCH (07:31)
[2021-12-01] MEDS: carvediloL 6.25 MG TABLET PO SCH ×2 (07:32→16:37)
[2021-12-01] MEDS: ARIPiprazole 5 MG TABLET PO SCH (07:32)
[2021-12-01] MEDS: Metoclopramide 10 MG/2 ML VIAL IVP PRN ×2 (07:32→16:44)
[2021-12-01] MEDS: Multivit/Ca/Min/Fe/FA 1 TAB TABLET PO SCH (07:32)
[2021-12-01] MEDS: PARoxetine 20 MG TABLET PO SCH (07:32)
[2021-12-01] MEDS: Lactobacillus 1 EACH CAP.SPRINK PO SCH ×2 (07:32→21:43)
[2021-12-01] MEDS: Cyanocobalamin (B-12) 1,000 MCG TABLET PO SCH (07:32)
[2021-12-01 10:06] LABS: Magnesium 1.8 mg/dL (1.6-2.6); Phosphorous 2.4 mg/dL (2.7-4.5)
[2021-12-01] MEDS: Sucralfate 1 GM TABLET PO SCH ×3 (11:24→21:43)
[2021-12-01] MEDS: *HR* OxyCODONE/APAP 5/325 TABLET PO PRN (21:43)
[2021-12-01] MEDS: *HR* Promethazine 25 MG/ML VIAL IM PRN (21:55)
[2021-12-02] MEDS: Metoclopramide 10 MG/2 ML VIAL IVP PRN ×3 (03:07→16:25)
[2021-12-02] MEDS: *HR* Enoxaparin 40 MG/0.4 ML SYRINGE SQ SCH (06:03)
[2021-12-02] MEDS: Pantoprazole 40 MG VIAL IVP SCH ×2 (06:04→16:21)
[2021-12-02] MEDS: Insulin DETEMIR 100 UNIT/ML X5UNITS SUBQ SCH ×2 (08:16→20:03)
[2021-12-02] MEDS: Insulin LISPRO 300 UNITS/3 ML VIAL SUBQ SCH ×7 (08:16→20:04)
[2021-12-02] MEDS: Stomatitis Mixture 5 ML UDC PO SCH ×3 (08:19→16:20)
[2021-12-02] MEDS: Thiamine (B-1) 100 MG TABLET PO SCH (08:20)
[2021-12-02] MEDS: PARoxetine 20 MG TABLET PO SCH (08:20)
[2021-12-02] MEDS: Spironolactone 12.5 MG TABLET PO SCH (08:20)
[2021-12-02] MEDS: Cholecalciferol (D-3) 1,000 UNIT (25MCG) TABLET PO SCH (08:20)
[2021-12-02] MEDS: Sucralfate 1 GM TABLET PO SCH ×2 (08:20→11:52)
[2021-12-02] MEDS: Multivit/Ca/Min/Fe/FA 1 TAB TABLET PO SCH (08:21)
[2021-12-02] MEDS: Aspirin Enteric Coated 81 MG Tablet PO SCH (08:21)
[2021-12-02] MEDS: Cyanocobalamin (B-12) 1,000 MCG TABLET PO SCH (08:21)
[2021-12-02] MEDS: lisinopriL 5 MG TABLET PO SCH (08:21)
[2021-12-02] MEDS: carvediloL 6.25 MG TABLET PO SCH ×2 (08:21→16:19)
[2021-12-02] MEDS: Lactobacillus 1 EACH CAP.SPRINK PO SCH ×2 (08:21→20:02)
[2021-12-02] MEDS: ARIPiprazole 5 MG TABLET PO SCH (08:21)
[2021-12-02] MEDS: *HR* Promethazine 25 MG/ML VIAL IM PRN (20:11)
[2021-12-02 23:09] VITALS: O2SAT 98
[2021-12-03] MEDS: Pantoprazole 40 MG VIAL IVP SCH (05:36)
[2021-12-03] MEDS: *HR* Enoxaparin 40 MG/0.4 ML SYRINGE SQ SCH (05:36)
[2021-12-03] MEDS: Metoclopramide 10 MG/2 ML VIAL IVP PRN (05:40)
[2021-12-03 06:39] VITALS: BP 120/76; PULSE 87; TEMP 98.5
[2021-12-03] MEDS: Stomatitis Mixture 5 ML UDC PO SCH (07:22)
[2021-12-03] MEDS: Thiamine (B-1) 100 MG TABLET PO SCH (07:23)
[2021-12-03] MEDS: Cholecalciferol (D-3) 1,000 UNIT (25MCG) TABLET PO SCH (07:24)
[2021-12-03] MEDS: Aspirin Enteric Coated 81 MG Tablet PO SCH (07:24)
[2021-12-03] MEDS: lisinopriL 5 MG TABLET PO SCH (07:25)
[2021-12-03] MEDS: Spironolactone 12.5 MG TABLET PO SCH (07:25)
[2021-12-03] MEDS: PARoxetine 20 MG TABLET PO SCH (07:25)
[2021-12-03] MEDS: Lactobacillus 1 EACH CAP.SPRINK PO SCH (07:25)
[2021-12-03] MEDS: carvediloL 6.25 MG TABLET PO SCH (07:25)
[2021-12-03] MEDS: Multivit/Ca/Min/Fe/FA 1 TAB TABLET PO SCH (07:25)
[2021-12-03] MEDS: Cyanocobalamin (B-12) 1,000 MCG TABLET PO SCH (07:26)
[2021-12-03] MEDS: ARIPiprazole 5 MG TABLET PO SCH (07:26)
[2021-12-03] MEDS: Insulin DETEMIR 100 UNIT/ML X5UNITS SUBQ SCH (07:27)
[2021-12-03] MEDS: Insulin LISPRO 300 UNITS/3 ML VIAL SUBQ SCH ×2 (07:27→07:28)
== END 2021-12-03 12:00 | disposition home or self-care (01) | DRG 637 ==
LOC: EMEROOARM 15:32 → 2NNU 15:32 → SUATTDRO 20:03 → 2ANU 11-28 13:55
PROVIDERS: ADMIT Internal Medicine; ATTEND Internal Medicine
PROC: ENDOEBX (2021-11-30 13:00)